=== PATIENT | male | born 1970 | race Caucasian/White ===

== ENCOUNTER 2016-09-14 13:07 | Emergency (ER) | payer OTHER ==
[~2016-09-14] VITALS: Ht 182.9 cm; Wt 107.0 kg
[~2016-09-14 13:07] MED LIST: FURO20TA3 PO; HYDR-906 PO; OMEP20CA16 PO; SPIR25TA76 PO
[2016-09-14 13:10] VITALS: Ht 182.9 cm; Wt 107.0 kg
[2016-09-14] MEDS ORDERED: SPIR100T31 PO (14:10)
[2016-09-14] MEDS ORDERED: LACT10SO5 PO (14:12)
--- NOTE | 2016-09-14 15:03 | ERD ---
ER Documentation Chief Complaint Date/Time DATE: 09/14/16 TIME: 15:01 Chief Complaint ABD PAIN , SOB , NEEDS PARACENTESIS HPI Patient is a 38-year-old male with cirrhosis who presents with abdominal distention. The patient has shortness of breath as well. He had a paracentesis done at the end of August and feels like he needs another paracentesis. He has a history of cirrhosis. He denies fevers. Upon review of old medical records the patient has previous visits for paracentesis. ROS All systems reviewed and are negative except as per history of present illness. Medications Home Meds Reported Medications Lactulose* (Lactulose*) 10 Gm/15 Ml Solution, 15 GM PO BID Y for CONSTIPATION, ML 09/14/16 Spironolactone* (Spironolactone*) 100 Mg Tablet, 100 MG PO DAILY, TAB 09/14/16 Omeprazole* (Omeprazole*) 20 Mg Capsule.dr, 20 MG PO DAILY, #30 CAP 08/18/16 Furosemide* (Furosemide*) 20 Mg Tablet, 20 MG PO DAILY, #60 TAB 08/18/16 Discontinued Reported Medications Spironolactone* (Aldactone*) 25 Mg Tablet, 25 MG PO DAILY, #30 TAB 08/18/16 Discontinued Scripts Hydrocodone/Acetaminophen ([place] 5-325 Tablet) 1 Each Tablet, 2 TAB PO Q6H Y for PAIN, #20 TAB 0 Refills Prov:MARAL DONATO 09/01/16 Allergies Allergies: Coded Allergies: No Known Allergy (Unverified , 09/14/16) PMhx/Soc History of Surgery: No Anesthesia Reaction: No Hx Neurological Disorder: No Hx Respiratory Disorders: No Hx Cardiac Disorders: No Hx Psychiatric Problems: No Hx Miscellaneous Medical Probl: Yes (LIVER CIRRHOSIS) Hx Alcohol Use: No Hx Substance Use: No Hx Tobacco Use: Yes (1-5 CIG /DAY) Smoking Status: Current every day smoker FmHx Family History: No diabetes Physical Exam Vitals Vital Signs Date Time Temp Pulse Resp B/P Pulse Ox O2 Delivery O2 Flow Rate FiO2 09/14/16 13:10 98.1 115 20 150/96 100 Physical Exam Const: No acute distress Head: Atraumatic Eyes: Normal Conjunctiva ENT: Normal External Ears, Nose and Mouth. Neck: Full range of motion..~ No meningismus. Resp: Clear to auscultation bilaterally Cardio: Regular rate and rhythm, no murmurs Abd: Abdominal distention with positive fluid wave Skin: No petechiae or rashes Back: No midline or flank tenderness Ext: No cyanosis, or edema Neur: Awake and alert Psych: Normal Mood and Affect Procedures/MDM Smoking Cessation Therapy: Pt. was lectured for greater than 3 minutes on the health risks of continued smoking and the benefits of cessation. Patient is a 46-year-old male with cirrhosis who presents with abdominal distention and ascites. He will have ultrasound-guided paracentesis performed by radiology. I doubt spontaneous bacterial peritonitis. Laboratory studies done on September 01 were within normal limits and he does not require repeat laboratory studies. The patient can return for any worsening symptoms. The patient be discharged after paracentesis Departure Diagnosis: Primary Impression: Ascites Ascites type: other type Qualified Code: R18.8 - Other ascites Additional Impression: Abdominal pain Abdominal location: generalized Qualified Code: R10.84 - Generalized abdominal pain Condition: Fair Patient Instructions: Abdominal Pain, Ascites Referrals: Your doctor Additional Instructions: Call your primary care doctor TOMORROW for an appointment during the next 1-2 days.See the doctor sooner or return here if your condition worsens before your appointment time. CAROLINE ASHLEY MD Sep 14, 2016 15:03
[2016-09-14] MEDS ORDERED: LIDOCAINE 1% (MPF) 5 ML VIAL ONE (15:06)
--- NOTE | 2016-09-14 17:17 | RADRPT ---
PROCEDURE: Ultrasound guided paracentesis. CLINICAL INDICATION: Ascites and shortness of breath. COMPARISON: No prior studies are available for comparison. TECHNIQUE: The risks, benefits, and alternatives were explained to the patient, including but not limited to bl eeding, infection, pain, visceral or vascular damage, shock, and . The patient understood the risks and the alternatives and wished to proceed with the procedure. Informed written consent was o btained. A procedural time out was performed. The patient's name, date of , and procedure to b e performed were verified. Utilizing ultrasound guidance, optimal location for entry to the peritoneal cavity was ascertained. The overlying skin was prepped and draped in the usual sterile fashion. Approximately 10 ml of 1% Xylocaine was injected locally for pain control. Using ultrasound guidance, an 8 [place] catheter wa s introduced into the peritoneal cavity in the right lower quadrant without difficulty. FINDINGS: Initial images demonstrate ascites. Approximately 22.2 liters of serous fluid was aspirated and dis carded. The patient tolerated the procedure well without complication. IMPRESSION: 1. Successful ultrasound-guided paracentesis. RPTAT: QQ .Mac Foley MD, Date Time Electronically viewed and signed by .Mac Foley MD, MD on 09/14/2016 17:17 .R/
[2016-09-14 18:03] VITALS: BP 112/63; PULSE 97; RESP 18; TEMP 98.7
== END 2016-09-14 18:05 | disposition home or self-care (01) ==
LOC: E/R 13:07
DX: R18.8 Other ascites (principal); R40.2252 Coma scale, best verbal response, oriented, at arrival to emergency department; R10.84 Generalized abdominal pain; F17.210 Nicotine dependence, cigarettes, uncomplicated; R40.2362 Coma scale, best motor response, obeys commands, at arrival to emergency department; R40.2142 Coma scale, eyes open, spontaneous, at arrival to emergency department
CPT/HCPCS: Z7502; Z7610

== ENCOUNTER 2016-10-09 13:20 | Emergency (ER) | payer SELFPAY ==
[~2016-10-09] VITALS: Ht 170.2 cm; Wt 104.0 kg
[~2016-10-09 13:20] MED LIST changes: -HYDR-906 PO; +LACT10SO5 PO; +SPIR100T31 PO; -SPIR25TA76 PO
[2016-10-09 13:52] VITALS: Ht 170.2 cm; Wt 104.0 kg
== END 2016-10-09 20:13 | disposition left against medical advice (07) ==
LOC: E/R 13:20
DX: Z53.21 Procedure and treatment not carried out due to patient leaving prior to being seen by health care provider (principal)

== ENCOUNTER 2016-10-11 11:24 | Emergency (ER) | payer OTHER ==
[~2016-10-11] VITALS: Wt 103.0 kg
--- NOTE | 2016-10-11 17:00 | ERA ---
ER Documentation Chief Complaint Date/Time DATE: 10/11/16 TIME: 16:59 Chief Complaint ABDOMINAL PAIN AND DISTENTION FOR THE PAST FEW WEEKS. NEEDS PARACENTHESIS ROS All systems reviewed and are negative except as per history of present illness. Medications Home Meds Active Scripts Hydrocodone/Acetaminophen ([place] 5-325 Tablet) 1 Each Tablet, 1 TAB PO Q6H Y for PAIN, #7 TAB Prov:MARIUM FIGUEROA MD 10/11/16 Reported Medications Lactulose* (Lactulose*) 10 Gm/15 Ml Solution, 15 GM PO BID Y for CONSTIPATION, ML 09/14/16 Omeprazole* (Omeprazole*) 20 Mg Capsule.dr, 20 MG PO DAILY, #30 CAP 08/18/16 Furosemide* (Furosemide*) 20 Mg Tablet, 20 MG PO DAILY, #60 TAB 08/18/16 Discontinued Reported Medications Spironolactone* (Spironolactone*) 100 Mg Tablet, 100 MG PO DAILY, TAB 09/14/16 Allergies Allergies: Coded Allergies: No Known Allergy (Unverified , 10/11/16) PMhx/Soc History of Surgery: No Anesthesia Reaction: No Hx Neurological Disorder: No Hx Respiratory Disorders: No Hx Cardiac Disorders: No Hx Psychiatric Problems: No Hx Miscellaneous Medical Probl: Yes (LIVER CIRRHOSIS) Hx Alcohol Use: No Hx Substance Use: No Hx Tobacco Use: Yes (1-5 CIG /DAY) Physical Exam Vitals Physical Exam Const: No acute distress. Head: Atraumatic. Eyes: Normal Conjunctiva. ENT: Normal External Ears, Nose and Mouth. Neck: Full range of motion. No meningismus. Resp: Clear to auscultation bilaterally. Cardio: Regular rate and rhythm, no murmurs. Abd: Soft, distended, normal bowel sounds, non tender. Ascites Skin: No petechiae or rashes. Back: No midline or flank tenderness. Ext: No cyanosis, or edema. Neur: Awake and alert. No focal deficit Psych: Normal Mood and Affect. Results 24 hrs Laboratory Tests Test 10/11/16 17:15 Activated Partial Thromboplast Time 27.4Sec Anion Gap 15 Basophils # 0.110^3/ul Basophils % 0.8% Blood Morphology Comment Blood Urea Nitrogen 14mg/dl Calcium Level 8.5mg/dl Carbon Dioxide Level 22mmol/L Chloride Level 104mmol/L Creatinine 1.10mg/dl Eosinophils # 0.110^3/ul Eosinophils % 1.8% Glucose Level 107mg/dl Hematocrit 35.1% Hemoglobin 11.9g/dl INR International Normalized Ratio 1.02 Lymphocytes # 1.610^3/ul Lymphocytes % 22.6% Mean Corpuscular Hemoglobin 34.5pg Mean Corpuscular Hemoglobin Concent 34.0g/dl Mean Corpuscular Volume 101.5fl Mean Platelet Volume 6.8fl Monocytes # 0.510^3/ul Monocytes % 7.5% Neutrophils # 4.710^3/ul Neutrophils % 67.3% Nucleated Red Blood Cells # 0.010^3/ul Nucleated Red Blood Cells % 0.0/100WBC Platelet Count 41376^3/UL Potassium Level 4.5mmol/L Prothrombin Time 13.4Sec Prothrombin Time Ratio 1.0 Red Blood Count 3.4610^6/ul Red Cell Distribution Width 14.5% Sodium Level 136mmol/L White Blood Count 7.010^3/ul Current Medications Medications (Trade) Dose Ordered Sig/Eric Route PRN Reason Start Time Stop Time Status Last Admin Dose Admin Lidocaine (Xylocaine 1% (Mpf)) 5 ml STK-MED ONCE .ROUTE 10/12/16 09:29 10/12/16 09:30 DC Procedures/MDM MEDICAL MAKING DECISION: The patient is 46-year-old male, presenting with acute recurrent ascites. The differential diagnoses considered include but are not limited to SBP, cholelithiasis, cholecystitis, cystitis, pancreatitis, hepatitis , gastritis, peptic ulcer disease, gastric ulcer, appendicitis, diverticulitis, cholangitis, choledocholithiasis, partial small bowel obstruction. Departure Diagnosis: Primary Impression: Ascites Condition: Good Comments He was advised to return tomorrow for ultrasound-guided paracentesis by radiologist MARIUM FIGUEROA MD Oct 11, 2016 17:00
[2016-10-11 17:20] VITALS: BP 135/69; PULSE 91; RESP 16; TEMP 96.6
[2016-10-11 17:32] LABS: INR 1.02; PROTIME 13.4 Sec (12.2-14.2)
[2016-10-11 17:33] LABS: PARTIAL THROMBOPLASTIN TIME 27.4 Sec (25.0-35.0); POTASSIUM 4.5 mmol/L (3.5-5.1)
[2016-10-11 17:35] LABS: CREATININE 1.1 mg/dl (0.61-1.24)
[2016-10-11 17:36] LABS: CALCIUM 8.5 mg/dl (8.4-10.2)
[2016-10-11 17:48] LABS: BASOPHIL # 0.1 10^3/ul (0.0-0.1); BASOPHILS % 0.8 % (0.0-2.0); EOSINOPHILS # 0.1 10^3/ul (0.0-0.5); EOSINOPHILS % 1.8 % (0.0-7.0); HEMATOCRIT 35.1 % (42.0-52.0); HEMOGLOBIN 11.9 g/dl (14.0-18.0); LYMPHOCYTES # 1.6 10^3/ul (0.8-2.9); LYMPHOCYTES % 22.6 % (15.0-51.0); MEAN CORPUSCULAR HEMOGLOBIN 34.5 pg (29.0-33.0); MEAN CORPUSCULAR VOLUME 101.5 fl (82.0-101.0); MEAN PLATELET VOLUME 6.8 fl (7.4-10.4); MONOCYTE # 0.5 10^3/ul (0.3-0.9); MONOCYTES % 7.5 % (0.0-11.0); NEUTROPHIL # 4.7 10^3/ul (1.6-7.5); NEUTROPHILS % 67.3 % (39.0-77.0); PLATELET COUNT 337 10^3/UL (140-440); RED BLOOD COUNT 3.46 10^6/ul (4.70-6.10); RED CELL DISTRIBUTION WIDTH 14.5 % (11.5-14.5)
[2016-10-11 17:54] LABS: CONDITION 1; LH ANALYZER COMMENTS 1
[2016-10-11] MEDS ORDERED: HYDR-906 PO (18:30)
[2016-10-12] MEDS ORDERED: LIDOCAINE 1% (MPF) 5 ML VIAL ONE (09:29)
== END 2016-10-11 18:34 | disposition home or self-care (01) ==
LOC: E/R 11:24
DX: R18.8 Other ascites (principal); F17.210 Nicotine dependence, cigarettes, uncomplicated; R10.9 Unspecified abdominal pain
CPT/HCPCS: 80048; 85025; 85610; 85730; 99283

== ENCOUNTER 2016-10-12 07:02 | Emergency (ER) | payer OTHER ==
[~2016-10-12] VITALS: Ht 182.9 cm; Wt 102.0 kg
[~2016-10-12 07:02] MED LIST changes: +HYDR-906 PO; -SPIR100T31 PO
[2016-10-12 07:05] VITALS: Ht 182.9 cm; Wt 102.0 kg
--- NOTE | 2016-10-12 07:44 | ERD ---
ER Documentation Chief Complaint Date/Time DATE: 10/12/16 TIME: 07:40 Chief Complaint abdominal pain,distension,for abdominal paracentesis HPI This is a 46-year-old male with known history of liver cirrhosis secondary to alcohol abuse that presents to the emergency department with abdominal distention requesting a paracentesis. The patient has not consumed any alcohol for over 9 months. He indicates his last paracentesis was 2 weeks prior to arrival and he stated 21 L was removed. He denies any fever shaking or chills. He complains of mild dyspnea and states that he has mild epigastric discomfort. He indicates however that the epigastric discomfort is something he commonly experiences when he requires a paracentesis. He denies any back pain. He denies any shortness of breath. He has no chest pain or pressure that radiates to the neck arm back or jaw. He stated he was seen here yesterday for paracentesis but the radiologist was unavailable at that time and therefore he returns today to undergo a therapeutic paracentesis. He stated ancillary laboratory work was drawn yesterday. ROS All systems reviewed and are negative except as per history of present illness. Medications Home Meds Active Scripts Hydrocodone/Acetaminophen ([place] 5-325 Tablet) 1 Each Tablet, 1 TAB PO Q6H Y for PAIN, #7 TAB Prov:MARIUM FIGUEROA MD 10/11/16 Reported Medications Lactulose* (Lactulose*) 10 Gm/15 Ml Solution, 15 GM PO BID Y for CONSTIPATION, ML 09/14/16 Omeprazole* (Omeprazole*) 20 Mg Capsule.dr, 20 MG PO DAILY, #30 CAP 08/18/16 Furosemide* (Furosemide*) 20 Mg Tablet, 20 MG PO DAILY, #60 TAB 08/18/16 Discontinued Reported Medications Spironolactone* (Spironolactone*) 100 Mg Tablet, 100 MG PO DAILY, TAB 09/14/16 Allergies Allergies: Coded Allergies: No Known Allergy (Unverified , 10/11/16) PMhx/Soc History of Surgery: No Anesthesia Reaction: No Hx Neurological Disorder: No Hx Respiratory Disorders: No Hx Cardiac Disorders: No Hx Psychiatric Problems: No Hx Miscellaneous Medical Probl: Yes (LIVER CIRRHOSIS) Hx Alcohol Use: No (Former heavy alcohol user) Hx Substance Use: No Hx Tobacco Use: Yes Physical Exam Vitals Vital Signs Date Time Temp Pulse Resp B/P Pulse Ox O2 Delivery O2 Flow Rate FiO2 10/12/16 07:05 98.0 106 18 122/76 98 Physical Exam Constitutional:Well-developed. Well-nourished. HEENT:Normocephalic. Atraumatic.Pupils were equal round reactive to light. Moist mucous membranes.No tonsillar exudates. No sclera icterus. Neck: No nuchal rigidity. No lymphadenopathy. No posterior cervical spine tenderness or step-offs. Respiratory: Not using accessory muscles of respiration.Lungs were clear to auscultation bilaterally. No rhonchi. No rales. No wheezing. Cardiovascular: Regular rate regular rhythm.No murmurs. No rubs were appreciated.S1, S2 normal. Distal pulses are palpable 2+ bilaterally. GI: Abdomen was soft. Nontender. Tense ascites with positive fluid thrill. No pulsatile abdominal masses or bruits. No rebound. No guarding. Bowel sounds were present and normal. Muscle skeletal: Full range of motion of both the upper and lower extremities bilaterally.Normal muscle tone.No assymetrical calf tenderness or swelling. Skin: No petechia, no purpura. No lesions on the palms or the soles of the feet. No maculopapular rash. NEURO: Patient was alert, awake, orientated x3.No facial droop. Gait observed and normal with no ataxia.Speech had regular rate and rhythm. No focal neurological deficits. Procedures/MDM This patient presented to the emergency department with a known history of alcoholic liver cirrhosis and ascites. The patient had no physical exam findings to suggest spontaneous bacterial peritonitis. I did not repeat ancillary laboratory work as this had been performed in the past 24 hours with no coagulopathy. The patient did receive IV albumin and the radiologist performed a therapeutic paracentesis. The patient was discharged home in fair condition. They were instructed to return to the emergency department at any time if there was any worsening of their condition. The patient stated they would follow up with their PCP in the next 24-48 hours to initiate a suitable medication regimen under the care of their PCP as well as to allow their PCP to monitor any drug reactions. The patient was discharged home with prescriptions after they gave informed consent to the new medication. They were also fully informed by myself on the adverse effects and adverse drug interactions in order to provide adequate safeguards to prevent possible adverse reactions to medications. Departure Diagnosis: Primary Impression: Ascites of liver Condition: Fair LISSETT SILVERIO Oct 12, 2016 07:44
[2016-10-12] MEDS ORDERED: ALBUMIN HUMAN 25% 100 ML IV ONE (08:00)
[2016-10-12] MEDS ORDERED: LIDOCAINE 1% (MPF) 5 ML VIAL ONE (10:46)
--- NOTE | 2016-10-12 11:09 | RADRPT ---
PROCEDURE: Ultrasound guided paracentesis CLINICAL INDICATION: Ascites TECHNIQUE: The risks benefits and alternatives of the procedure were explained to the patient. In formed written consent was obtained. A time out was performed. The patient understood the risks be nefits and alternatives and wished to proceed with the procedure. COMPARISON: 09/14/2016. FINDINGS: A time out was performed. The overlying skin of the right lower quadrant of the abdomen was prepped and draped in the usual sterile fashion. Approximately 10 cc of Xylocaine was injected locally for pain control. Utilizing ultrasound guidance, a skinny 5-Wel[place] Yueh catheter was placed into the p eritoneal cavity without difficulty. The patient tolerated the procedure well without complication. Approximately 88993 cc of clear yellow fluid was obtained. The fluid was not sent to the lab for further analysis. IMPRESSION: 1. Successful ultrasound-guided paracentesis. RPTAT: QQ .Aubrey Gonzales MD, MD Date Time Electronically viewed and signed by .Aubrey Gonzales MD, on 10/12/2016 11:08 .N/
[2016-10-12 12:04] VITALS: BP 144/68; PULSE 66; RESP 18
== END 2016-10-12 12:05 | disposition home or self-care (01) ==
LOC: E/R 07:02
DX: R18.8 Other ascites (principal); R40.2252 Coma scale, best verbal response, oriented, at arrival to emergency department; R40.2362 Coma scale, best motor response, obeys commands, at arrival to emergency department; R40.2142 Coma scale, eyes open, spontaneous, at arrival to emergency department; Z87.891 Personal history of nicotine dependence
CPT/HCPCS: 96374; P9047; Z7502; Z7610

== ENCOUNTER 2016-10-25 07:21 | Emergency (ER) | payer OTHER ==
[~2016-10-25] VITALS: Wt 94.3 kg
--- NOTE | 2016-10-25 07:47 | ERD ---
ER Documentation Chief Complaint Date/Time DATE: 10/25/16 TIME: 07:46 Chief Complaint abd pain with distention for the past 2 wks needs paracenthesis HPI Very pleasant 46-year-old male who presents to the emergency room complaining of abdominal distention. The patient's last paracentesis was 2 weeks ago. The patient does not describe any significant pain just fullness. He denies any fevers or chills, no hematemesis, no melena. Patient states that his presentation is similar presentations in the past requiring large volume therapeutic paracentesis. ROS All systems reviewed and are negative except as per history of present illness. Medications Home Meds Reported Medications Lactulose* (Lactulose*) 10 Gm/15 Ml Solution, 15 GM PO BID Y for CONSTIPATION, ML 09/14/16 Omeprazole* (Omeprazole*) 20 Mg Capsule.dr, 20 MG PO DAILY, #30 CAP 08/18/16 Furosemide* (Furosemide*) 20 Mg Tablet, 20 MG PO DAILY, #60 TAB 08/18/16 Discontinued Scripts Hydrocodone/Acetaminophen ([place] 5-325 Tablet) 1 Each Tablet, 1 TAB PO Q6H Y for PAIN, #7 TAB Prov:MARIUM FIGUEROA MD 10/11/16 Allergies Allergies: Coded Allergies: No Known Allergy (Unverified , 10/25/16) PMhx/Soc History of Surgery: No Anesthesia Reaction: No Hx Neurological Disorder: No Hx Respiratory Disorders: No Hx Cardiac Disorders: No Hx Psychiatric Problems: No Hx Miscellaneous Medical Probl: Yes (LIVER CIRRHOSIS) Hx Alcohol Use: No (Former heavy alcohol user) Hx Substance Use: No Hx Tobacco Use: Yes FmHx Family History: No diabetes Physical Exam Vitals Vital Signs Date Time Temp Pulse Resp B/P Pulse Ox O2 Delivery O2 Flow Rate FiO2 10/25/16 10:27 98.1 69 19 115/59 100 Room Air 10/25/16 07:24 98.0 98 20 132/75 100 Physical Exam General: Well developed, well nourished, no acute distress Head: Normocephalic, atraumatic. Eyes: Pupils equally reactive, EOM intact ENT: Moist mucous membranes Neck: Supple, no lymphadenopathy Respiratory: Lungs clear bilaterally, no distress Cardiovascular: RRR, no murmurs, rubs, or gallops Abdominal: Soft, protuberant with fluid wave without focal tenderness, no peritonitis : Deferred MSK: No edema, no unilateral swelling, 5/5 strength Neurologic: Alert and oriented, moving all extremities, normal speech, no focal weakness, no cerebellar signs Skin: No rash Psych: Normal mood Result Diagram: 10/25/16 0744 10/25/16 0744 Results 24 hrs Laboratory Tests Test 10/25/16 07:44 Activated Partial Thromboplast Time 27.2Sec Alanine Aminotransferase (ALT/SGPT) 23IU/L Albumin 2.8g/dl Albumin/Globulin Ratio 0.90 Alkaline Phosphatase 103IU/L Anion Gap 14 Aspartate Amino Transf (AST/SGOT) 31IU/L Basophils # 0.110^3/ul Basophils % 0.8% Blood Morphology Comment Blood Urea Nitrogen 15mg/dl Calcium Level 8.4mg/dl Carbon Dioxide Level 21mmol/L Chloride Level 105mmol/L Creatinine 1.30mg/dl Direct Bilirubin 0.00mg/dl Eosinophils # 0.310^3/ul Eosinophils % 2.9% Globulin 3.10g/dl Glucose Level 143mg/dl Hematocrit 36.9% Hemoglobin 12.8g/dl INR International Normalized Ratio 1.05 Indirect Bilirubin 0.3mg/dl Lymphocytes # 2.610^3/ul Lymphocytes % 28.4% Mean Corpuscular Hemoglobin 35.0pg Mean Corpuscular Hemoglobin Concent 34.7g/dl Mean Corpuscular Volume 100.8fl Mean Platelet Volume 6.7fl Monocytes # 0.610^3/ul Monocytes % 6.0% Neutrophils # 5.710^3/ul Neutrophils % 61.9% Nucleated Red Blood Cells # 0.010^3/ul Nucleated Red Blood Cells % 0.0/100WBC Platelet Count 61844^3/UL Potassium Level 4.4mmol/L Prothrombin Time 13.7Sec Prothrombin Time Ratio 1.1 Red Blood Count 3.6610^6/ul Red Cell Distribution Width 15.1% Sodium Level 136mmol/L Total Bilirubin 0.3mg/dl Total Protein 5.9g/dl White Blood Count 9.210^3/ul Current Medications Medications (Trade) Dose Ordered Sig/Eric Route PRN Reason Start Time Stop Time Status Last Admin Dose Admin Lidocaine (Xylocaine 1% (Mpf)) 5 ml STK-MED ONCE .ROUTE 10/25/16 09:19 10/25/16 09:20 DC 10/25/16 09:54 Procedures/MDM EKG, MONITORS, & DIAGNOSTIC IMAGING: Large volume therapeutic paracentesis performed by interventional radiology. LAB INTERPRETATION: No significant coagulopathy noted. MEDICAL DECISION MAKING: The patient presents with abdominal ascites likely secondary to cirrhosis. Patient does not exhibit any signs or symptoms concerning for complications of cirrhosis such as GI bleed, hepatic encephalopathy or spontaneous bacterial peritonitis. There is no indication currently for diagnostic paracentesis. The patient will benefit from large volume therapeutic paracentesis by interventional radiology. If the patient remains stable without evidence of hemodynamic compromise secondary to fluid shifts the patient can be safely discharged home with close primary care and hepatology follow-up. ER COURSE: The patient had successful large volume therapeutic paracentesis. The patient remained hemodynamically stable and otherwise well-appearing. The patient is safe for discharge home. I kept the patient and/or family informed of laboratory and diagnostic imaging results throughout the emergency room course. DISPOSITION PLAN: We discussed follow up with the patient's primary care doctor within 24 to 48 hours as needed. We also discussed return to the emergency room for worsening symptoms or worsening condition. Discharge Medications: None Departure Diagnosis: Primary Impression: Ascites Ascites type: due to alcoholic cirrhosis Qualified Code: K70.31 - Ascites due to alcoholic cirrhosis Condition: Stable ISAIAS GUERIN MD Oct 25, 2016 07:47
[2016-10-25 07:58] LABS: BASOPHIL # 0.1 10^3/ul (0.0-0.1); BASOPHILS % 0.8 % (0.0-2.0); EOSINOPHILS # 0.3 10^3/ul (0.0-0.5); EOSINOPHILS % 2.9 % (0.0-7.0); HEMATOCRIT 36.9 % (42.0-52.0); HEMOGLOBIN 12.8 g/dl (14.0-18.0); LYMPHOCYTES # 2.6 10^3/ul (0.8-2.9); LYMPHOCYTES % 28.4 % (15.0-51.0); MEAN CORPUSCULAR HGB CONC 34.7 g/dl (32.0-37.0); MEAN CORPUSCULAR VOLUME 100.8 fl (82.0-101.0); MEAN PLATELET VOLUME 6.7 fl (7.4-10.4); MONOCYTE # 0.6 10^3/ul (0.3-0.9); NEUTROPHIL # 5.7 10^3/ul (1.6-7.5); NEUTROPHILS % 61.9 % (39.0-77.0); PLATELET COUNT 299 10^3/UL (140-440); RED BLOOD COUNT 3.66 10^6/ul (4.70-6.10); RED CELL DISTRIBUTION WIDTH 15.1 % (11.5-14.5); UNCORRECTED WBC 9.2 10^3/ul (4.8-10.8); WHITE BLOOD COUNT 9.2 10^3/ul (4.8-10.8)
[2016-10-25 08:01] LABS: CONDITION 1; LH ANALYZER COMMENTS 1
[2016-10-25 08:03] LABS: ALBUMIN 2.8 g/dl (3.3-4.9)
[2016-10-25 08:04] LABS: POTASSIUM 4.4 mmol/L (3.5-5.1)
[2016-10-25 08:05] LABS: INR 1.05; PROTIME 13.7 Sec (12.2-14.2); PT RATIO 1.1
[2016-10-25 08:06] LABS: ALBUMIN/GLOBULIN RATIO 0.9; BILIRUBIN,INDIRECT 0.3 mg/dl (0-1.1); BILIRUBIN,TOTAL 0.3 mg/dl (0.2-1.3); CREATININE 1.3 mg/dl (0.61-1.24); PARTIAL THROMBOPLASTIN TIME 27.2 Sec (25.0-35.0); TOTAL PROTEIN 5.9 g/dl (6.1-8.1)
[2016-10-25 08:07] LABS: CALCIUM 8.4 mg/dl (8.4-10.2)
[2016-10-25] MEDS ORDERED: LIDOCAINE 1% (MPF) 5 ML VIAL ONE (09:19)
--- NOTE | 2016-10-25 10:39 | RADRPT ---
PROCEDURE: Ultrasound guided paracentesis. CLINICAL INDICATION: Ascites and shortness of breath. COMPARISON: 10/12/2016. TECHNIQUE: The risks, benefits, and alternatives were explained to the patient and/or the patient's family, inc luding but not limited to bleeding, infection, pain, visceral or vascular damage, shock, and . The patient and/or the patient's family understood the risks and the alternatives and wished to pro ceed with the procedure. Informed written consent was obtained. A procedural time out was performed . The patient's name, date of , and procedure to be performed were verified. Utilizing ultrasound guidance, optimal location for entry to the peritoneal cavity was ascertained. The overlying skin was prepped and draped in the usual sterile fashion. Approximately 10 ml of 1% Xylocaine was injected locally for pain control. Using ultrasound guidance, an 8 [place] catheter wa s introduced into the peritoneal cavity in the right lower quadrant without difficulty. FINDINGS: Initial images demonstrate ascites. Approximately 15.3 liters of serous fluid was aspirated and dis carded. The patient tolerated the procedure well without complication. IMPRESSION: 1. Successful ultrasound-guided paracentesis. RPTAT: QQ .Mac Foley MD, Date Time Electronically viewed and signed by .Mac Foley MD, on 10/25/2016 10:39 .R/
[2016-10-25 10:51] VITALS: BP 116/60; PULSE 66; RESP 18; TEMP 97.8
== END 2016-10-25 10:52 | disposition home or self-care (01) ==
LOC: E/R 07:21
DX: K70.31 Alcoholic cirrhosis of liver with ascites (principal); F17.210 Nicotine dependence, cigarettes, uncomplicated
CPT/HCPCS: 36415; 80053; 85025; 85610; 85730; Z7502; Z7610

== ENCOUNTER 2016-11-15 07:24 | Emergency (ER) | payer OTHER ==
[~2016-11-15] VITALS: Ht 182.9 cm; Wt 95.5 kg
[~2016-11-15 07:24] MED LIST changes: -HYDR-906 PO
[2016-11-15 07:29] VITALS: Ht 182.9 cm; Wt 95.5 kg
[2016-11-15 07:58] LABS: ADD SCAN DIFF NO
[2016-11-15 08:12] LABS: BASOPHIL # 0.1 10^3/ul (0.0-0.1); BASOPHILS % 0.7 % (0.0-2.0); EOSINOPHILS # 0.3 10^3/ul (0.0-0.5); EOSINOPHILS % 3.7 % (0.0-7.0); HEMATOCRIT 32.5 % (42.0-52.0); HEMOGLOBIN 11.1 g/dl (14.0-18.0); LYMPHOCYTES # 2.2 10^3/ul (0.8-2.9); LYMPHOCYTES % 32.8 % (15.0-51.0); MEAN CORPUSCULAR HEMOGLOBIN 34.4 pg (29.0-33.0); MEAN CORPUSCULAR HGB CONC 34.2 g/dl (32.0-37.0); MEAN CORPUSCULAR VOLUME 100.6 fl (82.0-101.0); MEAN PLATELET VOLUME 8.8 fl (7.4-10.4); MONOCYTE # 0.6 10^3/ul (0.3-0.9); MONOCYTES % 9.4 % (0.0-11.0); NEUTROPHIL # 3.6 10^3/ul (1.6-7.5); NEUTROPHILS % 53.1 % (39.0-77.0); PLATELET COUNT 229 10^3/UL (140-415); RED BLOOD COUNT 3.23 10^6/ul (4.70-6.10); RED CELL DISTRIBUTION WIDTH 15.2 % (11.5-14.5); WHITE BLOOD COUNT 6.7 10^3/ul (4.8-10.8)
[2016-11-15 08:15] LABS: INR 0.96; PROTIME 12.8 Sec (12.2-14.2)
[2016-11-15 08:16] LABS: PARTIAL THROMBOPLASTIN TIME 28.8 Sec (25.0-35.0)
[2016-11-15 08:24] LABS: ALBUMIN 2.7 g/dl (3.3-4.9); POTASSIUM 4.1 mmol/L (3.5-5.1)
[2016-11-15 08:26] LABS: BILIRUBIN,INDIRECT 0.1 mg/dl (0-1.1); BILIRUBIN,TOTAL 0.1 mg/dl (0.2-1.3); CREATININE 1.29 mg/dl (0.61-1.24)
[2016-11-15 08:27] LABS: ALBUMIN/GLOBULIN RATIO 0.84; CALCIUM 8.8 mg/dl (8.4-10.2); TOTAL PROTEIN 5.9 g/dl (6.1-8.1)
[2016-11-15] MEDS ORDERED: LIDOCAINE 1% (MPF) 5 ML VIAL ONE (10:39)
--- NOTE | 2016-11-15 11:25 | ERD ---
ER Documentation Chief Complaint Date/Time DATE: 11/15/16 TIME: 11:21 Chief Complaint abd swelling, sttes needs paracentesis HPI Patient is a 46-year-old male with cirrhosis who presents for a paracentesis. He is going to see a liver specialist today and the liver specialist send him to the emergency department to have laboratory studies done including amylase, albumin, protein, and cell count. He also wanted cytology done. The patient has had multiple visits to the ER for similar type complaints and has had paracentesis done in the past. He has no fevers. ROS All systems reviewed and are negative except as per history of present illness. Medications Home Meds Reported Medications Lactulose* (Lactulose*) 10 Gm/15 Ml Solution, 15 GM PO BID Y for CONSTIPATION, ML 09/14/16 Omeprazole* (Omeprazole*) 20 Mg Capsule.dr, 20 MG PO DAILY, #30 CAP 08/18/16 Furosemide* (Furosemide*) 20 Mg Tablet, 20 MG PO DAILY, #60 TAB 08/18/16 Allergies Allergies: Coded Allergies: No Known Allergy (Unverified , 11/15/16) PMhx/Soc Medical and Surgical Hx: pt denies Surgical Hx History of Surgery: No Anesthesia Reaction: No Hx Neurological Disorder: No Hx Respiratory Disorders: No Hx Cardiac Disorders: No Hx Psychiatric Problems: No Hx Miscellaneous Medical Probl: Yes (CIRRHOSIS) Hx Alcohol Use: Yes (Former heavy alcohol user) Hx Substance Use: No Hx Tobacco Use: No Smoking Status: Unknown if ever smoked FmHx Positive for hypertension Physical Exam Vitals Vital Signs Date Time Temp Pulse Resp B/P Pulse Ox O2 Delivery O2 Flow Rate FiO2 11/15/16 07:29 95.1 84 18 124/73 100 Physical Exam Const: No acute distress Head: Atraumatic Eyes: Normal Conjunctiva ENT: Normal External Ears, Nose and Mouth. Neck: Full range of motion..~ No meningismus. Resp: Clear to auscultation bilaterally Cardio: Regular rate and rhythm, no murmurs Abd: Soft, distended abdomen with positive fluid wave Skin: No petechiae or rashes Back: No midline or flank tenderness Ext: No cyanosis, or edema Neur: Awake and alert Psych: Normal Mood and Affect Result Diagram: 11/15/16 0750 11/15/16 0750 Results 24 hrs Laboratory Tests Test 11/15/16 07:50 Activated Partial Thromboplast Time 28.8Sec Alanine Aminotransferase (ALT/SGPT) 28IU/L Albumin 2.7g/dl Albumin/Globulin Ratio 0.84 Alkaline Phosphatase 101IU/L Anion Gap 13 Aspartate Amino Transf (AST/SGOT) 28IU/L Basophils # 0.110^3/ul Basophils % 0.7% Blood Urea Nitrogen 18mg/dl Calcium Level 8.8mg/dl Carbon Dioxide Level 20mmol/L Chloride Level 109mmol/L Creatinine 1.29mg/dl Direct Bilirubin 0.00mg/dl Eosinophils # 0.310^3/ul Eosinophils % 3.7% Globulin 3.20g/dl Glucose Level 110mg/dl Hematocrit 32.5% Hemoglobin 11.1g/dl INR International Normalized Ratio 0.96 Indirect Bilirubin 0.1mg/dl Lipase 31U/L Lymphocytes # 2.210^3/ul Lymphocytes % 32.8% Mean Corpuscular Hemoglobin 34.4pg Mean Corpuscular Hemoglobin Concent 34.2g/dl Mean Corpuscular Volume 100.6fl Mean Platelet Volume 8.8fl Monocytes # 0.610^3/ul Monocytes % 9.4% Neutrophils # 3.610^3/ul Neutrophils % 53.1% Nucleated Red Blood Cells # 0.010^3/ul Nucleated Red Blood Cells % 0.0/100WBC Platelet Count 79492^3/UL Potassium Level 4.1mmol/L Prothrombin Time 12.8Sec Prothrombin Time Ratio 1.0 Red Blood Count 3.2310^6/ul Red Cell Distribution Width 15.2% Sodium Level 138mmol/L Total Bilirubin 0.1mg/dl Total Protein 5.9g/dl White Blood Count 6.710^3/ul Current Medications Medications (Trade) Dose Ordered Sig/Eric Route PRN Reason Start Time Stop Time Status Last Admin Dose Admin Lidocaine (Xylocaine 1% (Mpf)) 5 ml STK-MED ONCE .ROUTE 11/15/16 10:39 11/15/16 10:40 DC 11/15/16 11:08 Procedures/MDM Ultrasound-guided paracentesis to be done by radiology. Patient is a 46-year-old male with cirrhosis who presents for paracentesis. The patient has anemia but does not require transfusion. The patient will have an ultrasound-guided paracentesis done by radiology and then the studies will be sent. The patient has an appointment today with his liver specialist at 4: 30 PM. The patient can return for any worsening symptoms. At this point I doubt spontaneous pectoral peritonitis and I believe outpatient management is appropriate. Departure Diagnosis: Primary Impression: Ascites Ascites type: other type Qualified Code: R18.8 - Other ascites Additional Impressions: Swelling Anemia Anemia type: unspecified type Qualified Code: D64.9 - Anemia, unspecified type Condition: Fair Patient Instructions: Ascites Referrals: ERICH REYES Additional Instructions: Keep the appointment with your doctor scheduled for today at 4:30P. CAROLINE ASHLEY MD Nov 15, 2016 11:24
[2016-11-15 12:46] LABS: FLUID AMYLASE < 3 U/L; FLUID TYPE PARACENTESIS FLUID
[2016-11-15 12:47] LABS: FLUID GLUCOSE 101 mg/dl; FLUID TOTAL PROTEIN < 2.0 g/dl; FLUID TYPE PARACENTESIS FLUID
[2016-11-15 12:53] VITALS: BP 103/72; PULSE 83; RESP 12
[2016-11-15 13:01] LABS: FLUID APPEARANCE SLIGHTLY HAZY; FLUID RBC EST 0; FLUID TYPE PARACENTHESIS; FLUID WBC'S 95 /cmm
[2016-11-15 13:22] LABS: FLUID BASOPHIL 0 %; FLUID EOSINOPHIL 0 %; FLUID LYMPHOCYTES 42 %; FLUID MONOCYTES 48 %; FLUID NEUTROPHILS 10 %
--- NOTE | 2016-11-15 14:42 | RADRPT ---
PROCEDURE: Ultrasound guided paracentesis. CLINICAL INDICATION: Ascites and shortness of breath. COMPARISON: 10/25/2016. TECHNIQUE: The risks, benefits, and alternatives were explained to the patient and/or the patient's family, inc luding but not limited to bleeding, infection, pain, visceral or vascular damage, shock, and . The patient and/or the patient's family understood the risks and the alternatives and wished to pro ceed with the procedure. Informed written consent was obtained. A procedural time out was performed . The patient's name, date of , and procedure to be performed were verified. Utilizing ultrasound guidance, optimal location for entry to the peritoneal cavity was ascertained. The overlying skin was prepped and draped in the usual sterile fashion. Approximately 10 ml of 1% Xylocaine was injected locally for pain control. Using ultrasound guidance, an 8 [place] catheter wa s introduced into the peritoneal cavity in the right lower quadrant without difficulty. FINDINGS: Initial images demonstrate ascites. Approximately 7.3 liters of serous fluid was aspirated and sent for laboratory analysis. The patient tolerated the procedure well without complication. IMPRESSION: 1. Successful ultrasound-guided paracentesis. RPTAT: QQ .Mac Foley MD, Date Time Electronically viewed and signed by .Mac Foley MD, on 11/15/2016 14:41 .R/
== END 2016-11-15 12:56 | disposition home or self-care (01) ==
LOC: E/R 07:24
DX: R18.8 Other ascites (principal); D64.9 Anemia, unspecified; R06.02 Shortness of breath
CPT/HCPCS: 36415; 80053; 82042; 82150; 82945; 83615; 83690; 84157; 85025; 85610; 85730; 89050; Z7502; Z7610; 88104; 88305